=== PATIENT | male | born 1950 | race Caucasian/White ===

== ENCOUNTER 2016-06-23 13:48 | Outpatient (CLI) | payer MEDICARE ==
[2016-06-23 22:22] LABS: Prothrombin Time 31.5 SEC (12.0-14.7)
== END 2016-06-23 13:49 | disposition home or self-care (01) ==
LOC: NAVSJIPCSP 13:48
PROVIDERS: ATTEND Family Medicine
DX: Z51.81 Encounter for therapeutic drug level monitoring (principal); Z79.01 Long term (current) use of anticoagulants
CPT/HCPCS: 85610

== ENCOUNTER 2016-07-06 12:51 | Outpatient (CLI) | payer MEDICARE ==
[2016-07-06 18:01] LABS: ALT (SGPT) 39 U/L (0-55); AST (SGOT) 31 U/L (5-34); Alkaline Phosphatase 114 U/L (40-150); Bilirubin, Direct 0.2 mg/dL (0.1-0.3); Bilirubin, Total 0.5 mg/dL (0.2-1.2); LDL Cholesterol, Calculated 102 mg/dL; Protein, Total 7.8 g/dL (5.8-8.1)
== END 2016-07-06 12:52 | disposition home or self-care (01) ==
LOC: NAVSJIPCSP 12:51
PROVIDERS: ATTEND Specialist
DX: E78.4 Other hyperlipidemia (principal)
CPT/HCPCS: 80061; 80076

== ENCOUNTER 2016-07-21 12:24 | Outpatient (CLI) | payer MEDICARE ==
[2016-07-21 13:25] LABS: Prothrombin Time 37.8 SEC (12.0-14.7)
== END 2016-07-21 12:25 | disposition home or self-care (01) ==
LOC: NAVSJIPCSP 12:24
PROVIDERS: ATTEND Family Medicine
DX: Z51.81 Encounter for therapeutic drug level monitoring (principal); Z79.01 Long term (current) use of anticoagulants
CPT/HCPCS: 36415; 85610

== ENCOUNTER 2016-08-01 11:53 | Outpatient (CLI) | payer MEDICARE ==
[2016-08-01 13:35] LABS: Prothrombin Time 23.2 SEC (12.0-14.7)
== END 2016-08-01 11:54 | disposition home or self-care (01) ==
LOC: NAVSJIPCSP 11:53
PROVIDERS: ATTEND Family Medicine
DX: Z51.81 Encounter for therapeutic drug level monitoring (principal); Z79.01 Long term (current) use of anticoagulants
CPT/HCPCS: 36415; 85610

== ENCOUNTER 2016-08-12 08:57 | Outpatient (CLI) | payer MEDICARE | END 2016-08-12 08:58 | disposition home or self-care (01) | LOC: NAVSJIPCSP 08:57 | PROVIDERS: ATTEND Family Medicine | DX: Z51.81 Encounter for therapeutic drug level monitoring (principal); Z79.01 Long term (current) use of anticoagulants; R19.5 Other fecal abnormalities ==

== ENCOUNTER 2016-08-12 13:31 | Outpatient (CLI) | payer MEDICARE ==
[2016-08-12 13:58] LABS: Prothrombin Time 26.6 SEC (12.0-14.7)
== END 2016-08-12 13:32 | disposition home or self-care (01) ==
LOC: NAVSJIPCSP 13:31
PROVIDERS: ATTEND Family Medicine
DX: Z51.81 Encounter for therapeutic drug level monitoring (principal); Z79.01 Long term (current) use of anticoagulants
CPT/HCPCS: 36415; 85610

== ENCOUNTER 2016-08-22 13:10 | Outpatient (CLI) | payer MEDICARE ==
[2016-08-22 13:43] LABS: #Basophils 0.1 thou/uL (0.0-0.2); #Eosinphils 0.2 thou/uL (0.0-0.7); #Lymphocytes 1.7 thou/uL (1.20-3.40); #Monocytes 0.9 thou/uL (0.11-0.59); #Neutrophils 7.5 thou/uL (1.40-6.50); %Basophils 0.7 % (0.0-1.0); %Eosinophils 2.3 % (0.0-10.0); %Lymphocytes 16.1 % (21.0-51.0); %Monocytes 8.6 % (0.0-10.0); Hematocrit 29.2 % (42.0-52.0); White Blood Cell (WBC) Count 10.4 thou/uL (4.8-10.8)
[2016-08-22 14:04] LABS: Prothrombin Time 34.9 SEC (12.0-14.7)
== END 2016-08-22 13:11 | disposition home or self-care (01) ==
LOC: NAVSJIPCSP 13:10 → NAV LAB 13:11
PROVIDERS: ATTEND Family Medicine
DX: K28.9 Gastrojejunal ulcer, unspecified as acute or chronic, without hemorrhage or perforation (principal)
CPT/HCPCS: 85025; 85610

== ENCOUNTER 2016-08-25 10:36 | Outpatient (CLI) | payer MEDICARE ==
[2016-08-25 11:40] LABS: #Basophils 0.1 thou/uL (0.0-0.2); #Eosinphils 0.1 thou/uL (0.0-0.7); #Lymphocytes 1.6 thou/uL (1.20-3.40); #Monocytes 0.7 thou/uL (0.11-0.59); #Neutrophils 8.5 thou/uL (1.40-6.50); %Basophils 0.6 % (0.0-1.0); %Eosinophils 1.3 % (0.0-10.0); %Lymphocytes 14.8 % (21.0-51.0); %Monocytes 6.7 % (0.0-10.0); Hematocrit 22.6 % (42.0-52.0); Mean Platelet Volume 6.7 fL (7.4-10.4); Red Blood Cell (RBC) Count 2.28 mill/uL (4.70-6.10); White Blood Cell (WBC) Count 11.1 thou/uL (4.8-10.8)
== END 2016-08-25 10:37 | disposition home or self-care (01) ==
LOC: NAVSJIPCSP 10:36 → NAV LAB 10:37
PROVIDERS: ATTEND Family Medicine
DX: D64.9 Anemia, unspecified (principal); R19.5 Other fecal abnormalities
CPT/HCPCS: 85025

== ENCOUNTER 2016-09-08 13:20 | Outpatient (CLI) | payer MEDICARE ==
[2016-09-08 13:57] LABS: #Basophils 0.1 thou/uL (0.0-0.2); #Eosinphils 0.2 thou/uL (0.0-0.7); #Lymphocytes 1.5 thou/uL (1.20-3.40); #Monocytes 0.5 thou/uL (0.11-0.59); #Neutrophils 6.1 thou/uL (1.40-6.50); %Basophils 1.4 % (0.0-1.0); %Eosinophils 1.8 % (0.0-10.0); %Lymphocytes 17.9 % (21.0-51.0); %Neutrophils 72.9 % (42.0-75.0); Hemoglobin 10.5 g/dL (14.0-18.0); Mean Corpuscular HGB CONC 30.4 g/dL (32.0-36.0); Mean Corpuscular Hemoglobin 29.4 pg (27.0-31.0); Mean Corpuscular Volume 96.9 fl (80.0-94.0); Mean Platelet Volume 6.5 fL (7.4-10.4); Platelet Count 379 thou/uL (130-400); RBC Distribution Width 14.8 % (11.5-14.5); Red Blood Cell (RBC) Count 3.56 mill/uL (4.70-6.10); White Blood Cell (WBC) Count 8.4 thou/uL (4.8-10.8)
[2016-09-08 14:39] LABS: INR-International Normal Ratio 2.9; Prothrombin Time 31.4 SEC (12.0-14.7)
== END 2016-09-08 13:21 | disposition home or self-care (01) ==
LOC: NAVSJIPCSP 13:20
PROVIDERS: ATTEND Specialist
DX: D64.9 Anemia, unspecified (principal); Z79.01 Long term (current) use of anticoagulants
CPT/HCPCS: 36415; 85025; 85610

== ENCOUNTER 2016-09-15 10:10 | Outpatient (CLI) | payer MEDICARE ==
[2016-09-15 12:39] LABS: #Eosinphils 0.2 thou/uL (0.0-0.7); #Lymphocytes 1.3 thou/uL (1.20-3.40); #Monocytes 0.7 thou/uL (0.11-0.59); #Neutrophils 6.2 thou/uL (1.40-6.50); %Basophils 0.5 % (0.0-1.0); %Eosinophils 2.4 % (0.0-10.0); %Lymphocytes 15.8 % (21.0-51.0); %Monocytes 8.2 % (0.0-10.0); %Neutrophils 73.1 % (42.0-75.0); Hemoglobin 12.6 g/dL (14.0-18.0); Mean Corpuscular HGB CONC 30.1 g/dL (32.0-36.0); Mean Corpuscular Hemoglobin 30.1 pg (27.0-31.0); Mean Platelet Volume 6.4 fL (7.4-10.4); Platelet Count 316 thou/uL (130-400); RBC Distribution Width 18.1 % (11.5-14.5); Red Blood Cell (RBC) Count 4.17 mill/uL (4.70-6.10); White Blood Cell (WBC) Count 8.4 thou/uL (4.8-10.8)
[2016-09-15 13:49] LABS: INR-International Normal Ratio 3.1; Prothrombin Time 33.1 SEC (12.0-14.7)
== END 2016-09-15 10:11 | disposition home or self-care (01) ==
LOC: NAVSJIPCSP 10:10
PROVIDERS: ATTEND Specialist
DX: Z48.812 Encounter for surgical aftercare following surgery on the circulatory system (principal); Z95.2 Presence of prosthetic heart valve
CPT/HCPCS: 36415; 85025; 85610

== ENCOUNTER 2016-09-29 12:55 | Outpatient (CLI) | payer MEDICARE ==
[2016-09-29 14:04] LABS: #Basophils 0.1 thou/uL (0.0-0.2); #Eosinphils 0.4 thou/uL (0.0-0.7); #Lymphocytes 2.1 thou/uL (1.20-3.40); #Monocytes 0.9 thou/uL (0.11-0.59); #Neutrophils 5.8 thou/uL (1.40-6.50); %Basophils 0.8 % (0.0-1.0); %Eosinophils 4.3 % (0.0-10.0); %Lymphocytes 22.5 % (21.0-51.0); %Monocytes 9.4 % (0.0-10.0); %Neutrophils 63.1 % (42.0-75.0); Hemoglobin 14.1 g/dL (14.0-18.0); Mean Corpuscular HGB CONC 30.4 g/dL (32.0-36.0); Mean Corpuscular Hemoglobin 29.8 pg (27.0-31.0); Mean Corpuscular Volume 98.3 fl (80.0-94.0); Mean Platelet Volume 6.5 fL (7.4-10.4); Platelet Count 293 thou/uL (130-400); RBC Distribution Width 17.4 % (11.5-14.5); Red Blood Cell (RBC) Count 4.71 mill/uL (4.70-6.10); White Blood Cell (WBC) Count 9.2 thou/uL (4.8-10.8)
[2016-09-29 14:06] LABS: INR-International Normal Ratio 2.3; Prothrombin Time 26.3 SEC (12.0-14.7)
== END 2016-09-29 12:56 | disposition home or self-care (01) ==
LOC: NAVSJIPCSP 12:55
PROVIDERS: ATTEND Specialist
DX: D64.9 Anemia, unspecified (principal); Z79.01 Long term (current) use of anticoagulants
CPT/HCPCS: 36415; 85025; 85610

== ENCOUNTER 2016-10-28 10:00 | Outpatient (CLI) | payer MEDICARE ==
[2016-10-28 11:08] LABS: INR-International Normal Ratio 1.8; Prothrombin Time 21.4 SEC (12.0-14.7)
== END 2016-10-28 10:01 | disposition home or self-care (01) ==
LOC: NAV LABSP 10:00
PROVIDERS: ATTEND Family Medicine
DX: Z51.81 Encounter for therapeutic drug level monitoring (principal); Z79.01 Long term (current) use of anticoagulants
CPT/HCPCS: 36415; 85610

== ENCOUNTER 2016-12-01 10:06 | Outpatient (CLI) | payer MEDICARE ==
[2016-12-01 13:27] LABS: INR-International Normal Ratio 2.9
[2016-12-01 16:03] LABS: Follow-up Coag Comp? YES; Follow-up Result - Coag REPORT FAXED
== END 2016-12-01 10:07 | disposition home or self-care (01) ==
LOC: NAVSJIPCSP 10:06
PROVIDERS: ATTEND Family Medicine
DX: Z51.81 Encounter for therapeutic drug level monitoring (principal); Z79.01 Long term (current) use of anticoagulants
CPT/HCPCS: 36415; 85610

== ENCOUNTER 2017-01-04 07:31 | Outpatient (CLI) | payer MEDICARE ==
[2017-01-04 07:53] LABS: INR-International Normal Ratio 2.7
== END 2017-01-04 07:32 | disposition home or self-care (01) ==
LOC: NAV LAB 07:31
PROVIDERS: ATTEND Family Medicine
DX: Z51.81 Encounter for therapeutic drug level monitoring (principal); Z79.01 Long term (current) use of anticoagulants
CPT/HCPCS: 36415; 85610

== ENCOUNTER 2017-01-12 13:22 | Outpatient (CLI) | payer MEDICARE ==
[2017-01-12 13:52] LABS: INR-International Normal Ratio 3.2
== END 2017-01-12 13:23 | disposition home or self-care (01) ==
LOC: NAVSJIPCSP 13:22
PROVIDERS: ATTEND Family Medicine
DX: Z51.81 Encounter for therapeutic drug level monitoring (principal); Z79.01 Long term (current) use of anticoagulants
CPT/HCPCS: 36415; 85610

== ENCOUNTER 2017-02-14 10:38 | Outpatient (CLI) | payer MEDICARE ==
[2017-02-14 11:48] LABS: INR-International Normal Ratio 2.1; Prothrombin Time 23.8 SEC (12.0-14.7)
== END 2017-02-14 10:39 | disposition home or self-care (01) ==
LOC: NAV LAB 10:38
PROVIDERS: ATTEND Family Medicine
DX: Z51.81 Encounter for therapeutic drug level monitoring (principal); Z79.01 Long term (current) use of anticoagulants
CPT/HCPCS: 36415; 85610

== ENCOUNTER 2017-03-10 12:56 | Outpatient (CLI) | payer MEDICARE ==
[2017-03-10 14:26] LABS: INR-International Normal Ratio 3.5; Prothrombin Time 36.8 SEC (12.0-14.7)
== END 2017-03-10 12:57 | disposition home or self-care (01) ==
LOC: NAVSJIPCSP 12:56
PROVIDERS: ATTEND Family Medicine
DX: Z51.81 Encounter for therapeutic drug level monitoring (principal); Z79.01 Long term (current) use of anticoagulants
CPT/HCPCS: 36415; 85610

== ENCOUNTER 2017-03-16 12:21 | Outpatient (CLI) | payer MEDICARE ==
[2017-03-16 12:41] LABS: Hemoglobin 14.6 g/dL (14.0-18.0); Mean Corpuscular HGB CONC 32.1 g/dL (32.0-36.0); Mean Corpuscular Hemoglobin 31.7 pg (27.0-31.0); Mean Corpuscular Volume 98.5 fl (80.0-94.0); Platelet Count 258 thou/uL (130-400); RBC Distribution Width 12.6 % (11.5-14.5); Red Blood Cell (RBC) Count 4.59 mill/uL (4.70-6.10); White Blood Cell (WBC) Count 13.1 thou/uL (4.8-10.8)
[2017-03-16 12:53] LABS: Anion Gap 13 mmol/L (10-20); BUN (Urea Nitrogen) 11 mg/dL (8.4-25.7); Calc. Creatinine Clearance 0 mL/min (70-130); Calcium 10.1 mg/dL (7.8-10.44); Carbon Dioxide 25 mmol/L (23-31); Chloride 105 mmol/L (98-107); Estimated GFR-MDRD Greater than 90; Glucose 102 mg/dL (80-115); Potassium 4.8 mmol/L (3.5-5.1); Sodium 138 mmol/L (136-145)
== END 2017-03-16 12:22 | disposition home or self-care (01) ==
LOC: NAVSJIPCSP 12:21
PROVIDERS: ATTEND Specialist
DX: I50.9 Heart failure, unspecified (principal); D64.9 Anemia, unspecified
CPT/HCPCS: 36415; 80048; 85027

== ENCOUNTER 2018-10-16 09:55 | Outpatient (CLI) | payer MEDICARE, OTHER ==
--- NOTE | 2018-10-16 10:37 | CT ---
CT lumbar spine without contrast INDICATION: History of spinal stenosis and low back pain COMPARISON: None FINDINGS: There is diffuse osteopenia. No acute fracture or subluxation demonstrated. There is moder ate degenerative change of both SI joints. There is subchondral cystlike abnormality seen involving the ileum as well as portions of the lower sacrum. At L5-S1, there is a broad-based disc osteophyte complex and facet hypertrophy inducing moderate bila teral neural foraminal narrowing. At L4-5, there is a disc osteophyte complex with ligamentum flavum hypertrophy and facet hypertrophy and likely inducing mild osseous central canal narrowing with moderate left and moderate to severe right neural foraminal narrowing. At L3-4, there is a broad-based disc osteophyte complex with facet hypertrophy likely inducing modera te right and [id number] left neural foraminal narrowing. At L2-3, there is a disc osteophyte complex with facet hypertrophy inducing mild right and moderate l eft neural foraminal narrowing. At L1-2, there is a broad-based bulge with facet hypertrophy inducing mild bilateral neural foraminal narrowing. At T12-L1, no appreciable osseous central canal or neural foraminal narrowing is demonstrated. There are vascular consultation involving abdominal pelvic vasculature. No enlarged lymph nodes are s een within the retroperitoneum. IMPRESSION: 1. No acute fracture or subluxation demonstrated. 2. Moderate multilevel spondylosis of the lumbar spine. Multilevel neural foraminal narrowing as deta iled above. 3. Moderate SI joint osteoarthrosis.
== END 2018-10-16 09:56 | disposition home or self-care (01) ==
LOC: NAV CT 09:55
PROVIDERS: ATTEND Anesthesiology Pain Medicine
DX: M48.061 Spinal stenosis, lumbar region without neurogenic claudication (principal); M47.816 Spondylosis without myelopathy or radiculopathy, lumbar region; M47.898 Other spondylosis, sacral and sacrococcygeal region
CPT/HCPCS: 72131

== ENCOUNTER 2019-04-04 10:27 | Outpatient (CLI) | payer MEDICARE, OTHER ==
[2019-04-04 11:00] LABS: Prothrombin Time 50.8 SEC (12.0-14.7)
[2019-04-04 11:07] LABS: INR-International Normal Ratio 5.7
== END 2019-04-04 10:28 | disposition home or self-care (01) ==
LOC: NAVSJIPCSP 10:27
PROVIDERS: ATTEND Family Medicine
DX: Z51.81 Encounter for therapeutic drug level monitoring (principal); Z79.01 Long term (current) use of anticoagulants
CPT/HCPCS: 36415; 85610

== ENCOUNTER 2019-04-15 11:29 | Outpatient (CLI) | payer MEDICARE, OTHER ==
[2019-04-15 11:42] LABS: INR-International Normal Ratio 3.4; Prothrombin Time 33.9 SEC (12.0-14.7)
== END 2019-04-15 11:30 | disposition home or self-care (01) ==
LOC: NAV SJFMSP 11:29
PROVIDERS: ATTEND Family Medicine
DX: Z51.81 Encounter for therapeutic drug level monitoring (principal); Z79.01 Long term (current) use of anticoagulants
CPT/HCPCS: 36415; 85610

== ENCOUNTER 2020-06-16 10:44 | Outpatient (CLI) | payer MEDICARE, OTHER ==
[2020-06-16 11:32] LABS: INR-International Normal Ratio 2.5; Prothrombin Time 27.9 sec (12.0-14.7)
== END 2020-06-16 10:45 | disposition home or self-care (01) ==
LOC: NAVSJIPCSP 10:44
PROVIDERS: ATTEND Family Medicine
DX: Z51.81 Encounter for therapeutic drug level monitoring (principal); Z79.01 Long term (current) use of anticoagulants
CPT/HCPCS: 36415; 85610

== ENCOUNTER 2025-05-10 10:15 | Emergency (ER) | payer MEDICARE, OTHER | END 2025-05-10 11:30 | disposition home or self-care (01) | LOC: NAV ERS 10:15 | DX: S63.502A Unspecified sprain of left wrist, initial encounter (principal); S20.212A Contusion of left front wall of thorax, initial encounter; S60.222A Contusion of left hand, initial encounter; I11.0 Hypertensive heart disease with heart failure; I50.9 Heart failure, unspecified; F17.210 Nicotine dependence, cigarettes, uncomplicated; I25.2 Old myocardial infarction; Z95.0 Presence of cardiac pacemaker; Z79.02 Long term (current) use of antithrombotics/antiplatelets; Z79.01 Long term (current) use of anticoagulants; W19.XXXA Unspecified fall, initial encounter | CPT/HCPCS: 29125; 99283 ==